=== PATIENT | female | born 1990 | race Caucasian/White ===

== ENCOUNTER → 2019-11-22 | Outpatient (CLI) | payer BC, OTHER ==
[2019-11-22 18:20] LABS: BASO % 0.2 % (0.0-1.0); EOS # 0.1 10^3/uL (0.0-0.5); EOS % 0.7 % (0.0-3.0); HEMATOCRIT 36.9 % (36.0-47.0); HEMOGLOBIN 12.3 g/dl (12.0-15.5); LYMPH # 2.1 10^3/uL (1.5-5.0); LYMPH % 21.4 % (24.0-44.0); MEAN CORPUSCULAR HEMOGLOBIN 32.3 pg (27.0-33.0); MEAN CORPUSCULAR HGB CONC 33.3 g/dl (32.0-36.5); MEAN CORPUSCULAR VOLUME 96.9 fl (80.0-96.0); MONO # 0.5 10^3/uL (0.0-0.8); MONO % 4.7 % (0.0-5.0); NEUTROPHILS # 7.2 10^3/uL (1.5-8.5); NEUTROPHILS % 72.6 % (36.0-66.0); PLATELET COUNT, AUTOMATED 261 10^3/uL (150-450); RED BLOOD COUNT 3.81 10^6/uL (4.00-5.40); WHITE BLOOD COUNT 9.9 10^3/uL (4.0-10.0)
[2019-11-22 19:17] LABS: HIV 1&2 SCREEN CENTAUR NEGATIVE (NEGATIVE)
[2019-11-22 20:50] LABS: CHLAMYDIA DNA AMPLIFICATION NEGATIVE (NEGATIVE); GC DNA AMPLIFICATION NEGATIVE (NEGATIVE)
[2019-11-25 12:02] LABS: HEPATITIS C VIRUS ABY INDEX 0.2 INDEX (<0.8); RUBELLA IgG QUALITATIVE IMMUNE (IMMUNE)
== END ==
LOC: M PLALAB 13:34
PROVIDERS: ATTEND Advanced Practice Midwife
DX: Z34.82 Encounter for supervision of other normal pregnancy, second trimester (principal)

== ENCOUNTER → 2019-12-06 | Outpatient (REF) | payer OTHER | LOC: M LABSMT 17:16 | PROVIDERS: ATTEND Advanced Practice Midwife | DX: Z34.82 Encounter for supervision of other normal pregnancy, second trimester (principal) ==

== ENCOUNTER → 2020-01-27 | Outpatient (CLI) | payer OTHER | LOC: M PLALAB 13:47 | PROVIDERS: ATTEND Advanced Practice Midwife | DX: Z34.82 Encounter for supervision of other normal pregnancy, second trimester (principal) ==

== ENCOUNTER → 2020-02-17 | Outpatient (REF) | payer OTHER ==
[2020-02-17 17:52] LABS: HEMATOCRIT 34.3 % (36.0-47.0); HEMOGLOBIN 11.3 g/dl (12.0-15.5); MEAN CORPUSCULAR HEMOGLOBIN 32.8 pg (27.0-33.0); MEAN CORPUSCULAR HGB CONC 32.9 g/dl (32.0-36.5); MEAN CORPUSCULAR VOLUME 99.4 fl (80.0-96.0); PLATELET COUNT, AUTOMATED 236 10^3/uL (150-450); RED BLOOD COUNT 3.45 10^6/uL (4.00-5.40); WHITE BLOOD COUNT 9.5 10^3/uL (4.0-10.0)
== END ==
LOC: M PLALAB 11:44
PROVIDERS: ATTEND Advanced Practice Midwife
DX: Z36.89 Encounter for other specified antenatal screening (principal)

== ENCOUNTER → 2020-03-23 | Outpatient (CLI) | payer OTHER ==
--- NOTE | 2020-03-24 07:47 | REP ---
Clinical: Rule out vasa previa Comparison: None . Findings: Examination demonstrates a single live intrauterine in cephalic presentation. motion is identified by technologist. Placenta is noted posterior and grade zero without evidence for placenta/vasa previa or abruption. Amniotic fluid volume is normal. Cervix measures 3.7 cm in length and appears closed. No evidence for nuchal cord. Gestational age by current measurements 32 weeks 0 days with NATALEE 05/18/2020 . FHR equals 133 beats per minute. Amniotic fluid index: 13.7 cm Estimated weight 1839 grams ( 39th percentile). Limited anatomical assessment demonstrates no obvious abnormalities and normal appearance to the four-chamber heart/ventricular outflow tracts, diaphragm, stomach, cord insertion, kidneys and bladder. Impression: 1. Single live advanced gestation in cephalic presentation demonstrating appropriate estimated weight. 2. No evidence for vasa previa.
== END ==
LOC: M WHC 13:48
PROVIDERS: ATTEND Specialist
DX: O44.23 Partial placenta previa NOS or without hemorrhage, third trimester (principal); Z3A.32 32 weeks gestation of pregnancy

== ENCOUNTER → 2020-04-08 | Outpatient (REF) | payer OTHER | LOC: M SFHCWAGY 17:09 | PROVIDERS: ATTEND Advanced Practice Midwife | DX: O09.213 Supervision of pregnancy with history of pre-term labor, third trimester (principal) ==

== ENCOUNTER → 2020-05-13 | Outpatient (REF) | payer OTHER ==
[~2020-05-13] MED LIST: PRENTAB9 PO; PRIL20TA2 PO
== END ==
LOC: M SFHCWAGY 17:37
PROVIDERS: ATTEND Advanced Practice Midwife
DX: Z34.83 Encounter for supervision of other normal pregnancy, third trimester (principal)

== ENCOUNTER 2020-05-27 06:52 | Inpatient (IN) | payer OTHER ==
[~2020-05-27] VITALS: Ht 157.5 cm; Wt 75.3 kg
[2020-05-27] VITALS (26 sets, daily range): BP systolic 99–141; BP diastolic 57–99
[2020-05-27] MEDS ORDERED: PRIL20TA2 PO (07:17)
[2020-05-27] MEDS ORDERED: PRENTAB9 PO (07:17)
--- NOTE | 2020-05-27 08:45 | HPE ---
DATE OF ADMISSION: 05/27/2020 SUBJECTIVE: Nika is a 29-year-old 3, para 0-1-1-1 at 40-6/7 weeks, EDC of 05/21/2020 based on last menstrual period and confirmed by first trimester ultrasound. She presents to labor and delivery today for induction of labor due to post-term per consult with Dr. Surya Moreira. She denies regular painful contractions, vaginal bleeding and leakage of fluid. The fetus has been active. Her care was initiated at [facility] in the first trimester. Her course complicated by a history of chlamydia in the past, history of delivery at 35 weeks. She did not undergo Capps injections. She had a marginal placenta with a rescan that showed no previa and no vasa previa. Panorama testing low risk male, negative for aneuploidy. OBSTETRIC HISTORY: February 2014, 8 weeks, spontaneous miscarriage. November 2014, 35 weeks, spontaneous vaginal delivery following PPROM, the was sent to [place] for meconium aspiration. OBSTETRIC LABORATORIES: A+, antibody screen negative, syphilis negative. Hepatitis B surface antigen negative. Hepatitis C antibody nonreactive. HIV negative. Gonorrhea and chlamydia negative. Rubella immune. Urine culture negative. GBS is negative. Her gestational diabetic screening normal at 72. PAST MEDICAL HISTORY: Scoliosis, migraines. SURGERIES: An ACL repair on the right. FAMILY HISTORY: Diabetes, cerebrovascular accident, hypertension, heart disease, Parkinson's, breast cancer, hyperlipidemia. SOCIAL HISTORY: The patient is . She is a nonsmoker. She denies alcohol and drug use. History of chlamydia. She denies any history of physical abuse, sexual abuse and emotional abuse. ALLERGIES: No known drug allergies. CURRENT MEDICATIONS: - vitamins OBJECTIVE: Temperature 98, pulse 100, respiration 18, BP 103/74. She is alert and oriented times three. She does not appear in any distress. heart rate is 140 with moderate variability, positive accelerations, negative decelerations. There is no pattern of regular contractions. Her abdomen is gravid, cephalic presentation. Estimated weight 7-1/2 pounds. Sterile vaginal exam: 3 cm dilated 50% effaced, -2 station, very posterior and soft, no show with the exam. ASSESSMENT: Intrauterine at 40-6/7 weeks. heart rate category one. PLAN: Admit the patient to labor and delivery for routine labs. Out of bed ad mana. Regular diet at this time. Saline lock for IV access. Misoprostol 50 mcg by mouth for cervical ripening. Will likely start Pitocin. May consider assisted rupture of membranes for labor augmentation once in active labor. The patient is desiring an epidural when she is uncomfortable with her labor. I did review risks, benefits and alternatives to induction. The patient and her partner have had all their questions answered. She has been verbally consented for emergency surgery and blood products. I do anticipate cervical ripening, active labor and a spontaneous vaginal delivery. MTDD
[2020-05-27] MEDS ORDERED: miSOPROStol 50 MCG 1/2 TAB (S0191) PO ONE (09:00)
[2020-05-27 09:20] LABS: HEMATOCRIT 31.7 % (36.0-47.0); MEAN CORPUSCULAR HEMOGLOBIN 28.1 pg (27.0-33.0); MEAN CORPUSCULAR HGB CONC 31.5 g/dl (32.0-36.5); PLATELET COUNT, AUTOMATED 283 10^3/uL (150-450); RED BLOOD COUNT 3.56 10^6/uL (4.00-5.40); WHITE BLOOD COUNT 11.1 10^3/uL (4.0-10.0)
[2020-05-27] MEDS ORDERED: OXYTOCIN DRIP 30 UNITS in IV 1 EA IV SCH ×2 (13:00→19:14)
[2020-05-27] MEDS: LR 1,000 ML IV SCH ×2 (13:14→15:47)
[2020-05-27] MEDS ORDERED: FENTANYL 2MCG/ML ROPIVACAINE 0.2% IN 0.9% NACL 100ML IVBAG As Ordered ONE (15:39)
[2020-05-27] MEDS ORDERED: ePHEDrine SULFATE 25 MG/5 ML(5MG/ML) SYRINGE IV PRN (16:30)
[2020-05-27] MEDS ORDERED: LACTATED RINGER'S 1000 ML IV PRN (16:30)
[2020-05-27] MEDS ORDERED: NALOXONE INJ 0.4MG/1ML VIAL (J2310 PER 1MG) IV PRN (16:30)
[2020-05-27] MEDS ORDERED: REFRIGERATOR IV KEYS XX PRN (16:30)
[2020-05-27] MEDS ORDERED: EPIDURAL/PCA KEYS XX PRN (16:30)
[2020-05-27] MEDS ORDERED: ONDANSETRON 4MG/2ML VIAL IV PRN (16:30)
[2020-05-27] MEDS ORDERED: FENTANYL/ROPIVACAINE/NACL BAG 100 ML EPIDURAL SCH (16:30)
[2020-05-27] MEDS ORDERED: EPIDURAL COMMENT XX SCH (16:30)
[2020-05-27] MEDS ORDERED: diphenhydrAMINE 50MG/ML VIAL (J1200) IV PRN (16:30)
[2020-05-27] MEDS ORDERED: METHYLERGONOVINE MALEATE 0.2 MG TAB PO PRN (19:15)
[2020-05-27] MEDS ORDERED: DIBUCAINE 1% OINTMENT 30GM TOP PRN (19:15)
[2020-05-27] MEDS ORDERED: MEASLES,MUMPS,RUBELLA VACCINE INJ (MMR-II) (90707) SC SCH (19:15)
[2020-05-27] MEDS ORDERED: RHOGAM 300 MCG (1500 IU) INJ (J2790) IM SCH (19:15)
[2020-05-27] MEDS ORDERED: ACETAMINOPHEN TAB 650MG DOSE (2X325MG) PO PRN (19:15)
[2020-05-27] MEDS ORDERED: IBUPROFEN 600MG TAB PO PRN (19:15)
[2020-05-27] MEDS ORDERED: DOCUSATE SODIUM 100 MG CAP PO PRN (19:15)
[2020-05-27] MEDS ORDERED: ACETAMINOPHEN 500 MG TAB PO PRN (19:15)
[2020-05-27] MEDS: IBUPROFEN 800 MG TAB PO PRN (22:16)
--- NOTE | 2020-05-28 05:26 | DN ---
DATE: 05/27/2020 Nika is a 29-year-old, 3, para 1-1-1-2, who was admitted to labor and delivery for induction of labor due to postterm . One dose of misoprostol and IV Pitocin was used, and labor did ensue. She utilized an epidural for her labor coping. She had assisted rupture of membranes for large amount of clear odorless fluid at 1731 hours. She reached full dilation at 1833 hours. She pushed to a normal spontaneous vaginal delivery of a live female infant in left occiput anterior (SRAVANI) position with restitution to left occiput transverse (LOT) position at 1842 hours. The shoulders delivered spontaneously, and the corpus immediately followed. The was placed on the maternal abdomen, crying and active. Mouth and nares were bulb suctioned. The cord was clamped times two once pulsations ceased and cut by the father of the baby under my direction. Cord blood was obtained. Spontaneous expulsion of an intact placenta with three-vessel cord by Schultze mechanism was at 1854 hours. There was of note a succenturiate lobe to the placenta intact. Uterine hemostasis achieved with IV Pitocin rapid infusion and uterine fundal massage. Estimated blood loss 400 mL. Perineum and vagina inspected and noted to have a second-degree midline laceration. The laceration was repaired with #3-0 Vicryl Rapide in the usual fashion. Preston female weighed 4140 grams, 9 pounds 2 ounces, scores 8 and 9. Family have named their daughter Vale, and the mom is going to breastfeed the colostrum and then bottle feed. At the close of delivery, lap counts, needle counts, and instrument counts were correct and verified.
[2020-05-28] MEDS: IBUPROFEN 800 MG TAB PO PRN (05:40)
[2020-05-28 06:02] VITALS: BP 106/61
[2020-05-28] MEDS ORDERED: PRENATAL VITAMINS CHEWABLE TABLET PO SCH (09:00)
== END 2020-05-28 08:00 | disposition home or self-care (01) | DRG 560 ==
LOC: M LDI 06:52 → M OBS 21:43
PROVIDERS: ADMIT Advanced Practice Midwife; ATTEND Advanced Practice Midwife
PROC: 10E0XZZ Delivery of Products of Conception, External Approach (ICD-10-PCS; principal; 2020-05-27)
PROC: 0KQM0ZZ Repair Perineum Muscle, Open Approach (ICD-10-PCS; 2020-05-27)
PROC: 3E033VJ Introduction of Other Hormone into Peripheral Vein, Percutaneous Approach (ICD-10-PCS; 2020-05-27)
PROC: 3E0DXGC Introduction of Other Therapeutic Substance into Mouth and Pharynx, External Approach (ICD-10-PCS; 2020-05-27)
PROC: 10907ZC Drainage of Amniotic Fluid, Therapeutic from Products of Conception, Via Natural or Artificial Opening (ICD-10-PCS; 2020-05-27)
DX: O48.0 Post-term pregnancy (principal); O70.1 Second degree perineal laceration during delivery; Z37.0 Single live birth; Z3A.40 40 weeks gestation of pregnancy

== ENCOUNTER → 2021-10-01 | Outpatient (REF) | payer OTHER | LOC: M SFHCWAGY 10:03 | PROVIDERS: ATTEND Advanced Practice Midwife | DX: Z12.4 Encounter for screening for malignant neoplasm of cervix (principal) ==